=== PATIENT | female | born 1990 | race Caucasian/White ===

== ENCOUNTER 2018-05-10 08:06 | Inpatient (IN) ==
[2018-05-10] MEDS ORDERED: Sod Chloride 0.9% Inj 1,000 ML IV.CONT PRN (09:47)
[2018-05-10] MEDS ORDERED: Oxytocin 30 Units/500ml Premix 30 UNITS/500 ML BAG IV.SIG ONE (09:47)
[2018-05-10] MEDS ORDERED: fentaNYL Citrate Inj 100 MCG/2 ML Ampul IV.PUSH PRN ×2 (09:47)
[2018-05-10] MEDS ORDERED: Sodium Chlor 0.9% Inj 500 ML IV.SIG PRN (09:47)
[2018-05-10] MEDS ORDERED: Naloxone Inj 0.4 MG/ML Vial IV.PUSH PRN ×2 (09:47→17:20)
[2018-05-10] MEDS ORDERED: Oxytocin 30 Units/500ml Premix 30 UNITS/500 ML BAG IV.SIG PRN (09:49)
[2018-05-10 09:57] LABS: Baso % (Auto) 0.2 % (0.0-2.0); Eos % (Auto) 0.4 % (0.0-4.0); Hematocrit 37.7 % (35.0-46.0); Hemoglobin 12.6 gm/dL (11.6-15.3); Lymph # (Auto) 1.2 th/mm3 (1.0-4.8); Mean Corpuscular HGB Conc 33.4 % (32.0-36.0); Mean Corpuscular Volume 86.6 fL (80.0-100.0); Mean Platelet Volume 8.7 fL (7.0-11.0); Mono # (Auto) 0.9 th/mm3 (0.0-0.9); Mono % (Auto) 7.9 % (0.0-8.0); Neut # (Auto) 9.7 th/mm3 (1.8-7.7); Neut % (Auto) 81.5 % (16.0-70.0); Platelet Count 166 th/mm3 (150-450); Red Blood Count 4.35 mil/mm3 (4.00-5.30); Red Cell Distribution Width 15.6 % (11.6-17.2); White Blood Count 11.9 th/mm3 (4.0-11.0)
[2018-05-10] MEDS ORDERED: Citric Acid/Sodium Citrate Liq 30 ML UDC PO SCH (10:00)
[2018-05-10] MEDS ORDERED: fentaNYL 2MCG-Bupiv 0.125% Epi 150 ML EPIDURAL ONE (12:13)
[2018-05-10] MEDS ORDERED: fentaNYL Citrate Inj 100 MCG/2 ML Ampul EPIDURAL ONE (13:32)
[2018-05-10] MEDS ORDERED: fentaNYL 2MCG-Bupiv 0.125% Epi 150 ML EPIDURAL PRN (13:32)
[2018-05-10 13:34] LABS: Bilirubin,Urine Negative (Negative); Calcium Oxalate Crystals,Urine Many /hpf; Clarity,Urine Hazy (Clear); Color,Urine Yellow (Yellw/Straw); Glucose,Urine (UA) Negative (Negative); Leukocyte Esterase,Urine Trace (Negative); Mucus,Urine Few /lpf (Occasional); Nitrite,Urine Negative (Negative); Specific Gravity,Urine 1.016 (1.002-1.035); Squamous Epithelial Cell,Urine 1 /hpf (0-5)
[2018-05-10 13:35] LABS: Amphetamine Urine With Conf Neg (Neg); Benzodiazepine Urine With Conf Neg (Neg); Cocaine Urine With Conf Neg (Neg); Opiates Urine With Conf Neg (Neg)
[2018-05-10 13:43] LABS: Cannabinoid Urine With Conf Neg (Neg)
--- NOTE | 2018-05-10 14:10 | P.OBLABOR ---
Subjective Interval history: labor with AROM progressing well on pit Objective Vital Signs: Vital Signs - 8 hr 05/10/18 08:49 05/10/18 09:45 05/10/18 09:46 Temperature 98.3 F Pulse Rate 108 H 98 H Respiratory Rate 18 Blood Pressure 138/99 H 137/82 05/10/18 12:21 05/10/18 12:35 05/10/18 12:40 Temperature 97.5 F L Pulse Rate 97 H 102 H Respiratory Rate 16 Blood Pressure 136/102 H 143/102 H 05/10/18 12:50 05/10/18 13:00 05/10/18 13:05 Temperature Pulse Rate 111 H 103 H 88 Respiratory Rate Blood Pressure 152/88 H 145/83 H 116/75 05/10/18 13:10 05/10/18 13:15 05/10/18 13:20 Temperature Pulse Rate 80 82 84 Respiratory Rate Blood Pressure 126/79 122/75 120/67 05/10/18 14:03 Temperature 97.6 F Pulse Rate Respiratory Rate Blood Pressure Objective: Pelvic Exam: Cervix: [-] Dilatation: 5 Effacement: [-] Station: [-] Presentation: [-] Membranes: AROM Uterine Contractions: 2-3 min FHT's: Category: 1 Baseline: [-] Reactive: [-] Variability: [-] Decels: [-] Artificial Rupture of Membrane: Yes Artificial ROM Date: 05/10/18 Assessment and Plan - Diagnosis (1) Post-dates Code(s): O48.0 - Post-term Status: Acute
--- NOTE | 2018-05-10 14:16 | P.HPOB ---
History of Present Illness Service: Post dates induction Primary Care Physician: No Primary Care Physician History of Present Illness: 27 yo patient 41 1/7 weeks. post dates induction - Inpatient Certification I certify that the inpatient services were ordered in accordance with Medicare regulations governing the order. This includes certification that hospital inpatient services are reasonable and necessary and in the case of services not specified as inpatient-only under 42 CFR 419.22(n), that they are appropriately provided as inpatient services in accordance to with the 2-midnight benchmark under 43 CFR 412.3(e) Estimated Total Length of Stay (Days): 2 Plans for Post Hospital Care: Home Review of Systems All other systems reviewed negative except as stated in HPI PMFSH - Medical / Surgical Hx Neg / Unobtainable Medical Problems Denied: Yes Surgical History: No Previous Surgery - Social History I have reviewed the patient's Social History: Yes - Tobacco History Second Hand Smoke Exposure: No Tobacco Use In Past 30 Days: No Smoking Status: Never smoker - Travel History Recent Travel in the [place] Within the Last 8 Weeks: No Recent Travel Out of the Country Within the Last 8 Weeks: No - Immunization History Hx Influenza Vaccine This Season: Yes Medications and Allergies Active Medications: Active Medications Citric Acid/Sodium Citrate (Sodium Citrate/Citric Acid Liq) 30 ml PO [facility] Stop: 05/14/18 09:59 Ephedrine Sulfate (Ephedrine/Ns Syringe) 10 mg IV.PUSH UNSCH PRN PRN Reason: SEE LABEL COMMENTS Stop: 05/11/18 13:32 Fentanyl Citrate (Fentanyl Inj) 50 mcg IV.PUSH Q1H PRN PRN Reason: Pain Scale 3 - 5 Fentanyl Citrate (Fentanyl Inj) 100 mcg IV.PUSH Q1H PRN PRN Reason: PAIN SCALE 6 TO 10 Lactated Ringer's (Lr 1000 Ml Inj) 1,000 mls @ 125 mls/hr IV[facility]CONT [facility] Last Admin: 05/10/18 10:18 Dose: 125 mls/hr Lactated Ringer's (Lr 1000 Ml Inj) 1,000 mls @ 3,000 mls/hr IV.SIG UNSCH PRN PRN Reason: compromise or epidural Last Admin: 05/10/18 12:28 Dose: 3,000 mls/hr Sodium Chloride (Ns Inj) 500 mls @ 1,000 mls/hr IV.SIG UNSCH PRN PRN Reason: SEE LABEL COMMENTS Sodium Chloride (Ns Inj) 1,000 mls @ 100 mls/hr IV.CONT .Q10H PRN PRN Reason: SEE LABEL COMMENTS Oxytocin (Pitocin 30 Units/Ns 500 Ml Premix) 30 units in 500 mls @ 2 mls/hr IV.SIG TITRATE PRN; Protocol PRN Reason: For induction of labor Last Admin: 05/10/18 10:15 Dose: 2 milliunit/min, 2 mls/hr Fentanyl/Bupivacaine/Sodium Chlor (Fentanyl 2 Mcg-Bupiv 0.125% Epi) 150 mls @ 13 mls/hr EPIDURAL PRN PRN PRN Reason: for Labor Pain Lidocaine HCl (Xylocaine 1% Inj) 0.1 ml I-DERMAL PRN PRN PRN Reason: For IV start Stop: 05/13/18 09:46 Lidocaine HCl (Xylocaine 1% Inj) 10 ml INFILTRATN PRN PRN PRN Reason: For episiotomy repair Stop: 05/12/18 09:46 Mineral Oil (Muri-Lube Oil) 10 ml TOPICAL PRN PRN PRN Reason: PRN perineal massage Miscellaneous Information (Misc Information) 1 each OTHER UNSCH PRN PRN Reason: SEE LABEL COMMENTS Stop: 05/11/18 13:32 Miscellaneous Information (Misc Information) 1 each OTHER UNSCH PRN PRN Reason: SEE LABEL COMMENTS Stop: 05/11/18 13:32 Naloxone HCl (Narcan Inj) 0.1 mg IV.PUSH Q2M PRN PRN Reason: for opiate reversal Allergies Allergy/AdvReac Type Severity Reaction Status Date / Time No Known Allergies Allergy Verified 05/10/18 08:38 Home Medications Medication Instructions Recorded Confirmed Type vit,[id number] 1 tab PO DAILY 05/10/18 05/10/18 History [PNV 29-1] Exam Vital signs: Vital Signs 05/10/18 08:49 05/10/18 09:45 05/10/18 09:46 Temperature 98.3 F Pulse Rate 108 H 98 H Respiratory Rate 18 Blood Pressure 138/99 H 137/82 05/10/18 12:21 05/10/18 12:35 05/10/18 12:40 Temperature 97.5 F L Pulse Rate 97 H 102 H Respiratory Rate 16 Blood Pressure 136/102 H 143/102 H 05/10/18 12:50 05/10/18 13:00 05/10/18 13:05 Temperature Pulse Rate 111 H 103 H 88 Respiratory Rate Blood Pressure 152/88 H 145/83 H 116/75 05/10/18 13:10 05/10/18 13:15 05/10/18 13:20 Temperature Pulse Rate 80 82 84 Respiratory Rate Blood Pressure 126/79 122/75 120/67 05/10/18 14:03 Temperature 97.6 F Pulse Rate Respiratory Rate Blood Pressure Intake & Output 05/09/18 05/10/18 05/10/18 18:59 06:59 18:59 Weight 104.326 kg Other: Weight On Admission 104.326 kg - Constitutional no acute distress - Routine HEENT Exam Head: Present: normocephalic - Routine Neck Exam Present: full ROM - Routine Respiratory Exam Present: CTA bilaterally - Routine Cardiovascular Exam Present: RRR - Routine Abdominal Exam Present: soft, normoactive bowel sounds - Routine Extremities Exam Present: full ROM - Routine Skin Exam Present: intact - Routine Neurological Exam Present: oriented X3 - Additional findings Additional findings: cervix on admission 3 cm Results - Labs CBC & Chem 7: 05/10/18 08:35 Labs: Laboratory Results - last 24 hr 05/10/18 05/10/18 05/10/18 08:35 08:35 08:35 WBC 11.9 H RBC 4.35 Hgb 12.6 Hct 37.7 MCV 86.6 MCH 29.0 MCHC 33.4 RDW 15.6 Plt Count 166 MPV 8.7 Neut % (Auto) 81.5 H Lymph % (Auto) 10.0 Rains % (Auto) 7.9 Eos % (Auto) 0.4 Baso % (Auto) 0.2 Neut # (Auto) 9.7 H Lymph # (Auto) 1.2 Rains # (Auto) 0.9 Eos # (Auto) 0.0 Baso # (Auto) 0.0 WBC Differential . Differential Comment Auto diff final Urine Color Urine Clarity Urine pH Ur Specific [place] Urine Protein Urine Glucose (UA) Urine Ketones Urine Occult Blood Urine Nitrate Urine Bilirubin Urine Urobilinogen Ur Leukocyte Esterase Urine RBC Urine WBC Ur Squamous Epith Cells Calcium Oxalate Crystal Urine Mucus Micro UA Comment Ur Microscopic Review Urine Culture Comments Urine Opiates Screen Neg Ur Barbiturates Screen Neg Ur Amphetamine Screen Neg U Benzodiazepines Scrn Neg Urine Cocaine Screen Neg U Cannabinoids Screen Neg Blood Type A Positive Blood Type Recheck Required 05/10/18 08:35 WBC RBC Hgb Hct MCV MCH MCHC RDW Plt Count MPV Neut % (Auto) Lymph % (Auto) Rains % (Auto) Eos % (Auto) Baso % (Auto) Neut # (Auto) Lymph # (Auto) Rains # (Auto) Eos # (Auto) Baso # (Auto) WBC Differential Differential Comment Urine Color Yellow Urine Clarity Hazy H Urine pH 6.0 Ur Specific [place] 1.016 Urine Protein 30 H Urine Glucose (UA) Negative Urine Ketones Negative Urine Occult Blood Small H Urine Nitrate Negative Urine Bilirubin Negative Urine Urobilinogen Less than 2 Ur Leukocyte Esterase Trace H Urine RBC 1 Urine WBC 3 Ur Squamous Epith Cells 1 Calcium Oxalate Crystal Many H Urine Mucus Few H Micro UA Comment Culture not ind Ur Microscopic Review Not Reportable Urine Culture Comments Culture not ind Urine Opiates Screen Ur Barbiturates Screen Ur Amphetamine Screen U Benzodiazepines Scrn Urine Cocaine Screen U Cannabinoids Screen Blood Type Blood Type Recheck Caprini VTE Risk Assessment Caprini VTE Risk Assessment: No/Low Risk (score <= 1) Caprini Risk Assessment Model: Point Value = 1 Point Value = 2 Point Value = 3 Point Value = 5 Age 41-60 Minor surgery BMI > 25 kg/m2 Swollen legs Varicose veins or History of unexplained or recurrent spontaneous Oral contraceptives or hormone replacement Sepsis (< 1 month) Serious lung disease, including pneumonia (< 1 month) Abnormal pulmonary function Acute myocardial infarction Congestive heart failure (< 1 month) History of inflammatory bowel disease Medical patient at bed rest Age 61-74 Arthroscopic surgery Major open surgery (> 45 min) Laparoscopic surgery (> 45 min) Malignancy Confined to bed (> 72 hours) Immobilizing plaster cast Central venous access Age >= 75 History of VTE Family history of VTE Factor V Leiden Prothrombin [id number] Lupus anticoagulant Anticardiolipin antibodies Elevated serum homocysteine Heparin-induced thrombocytopenia Other congenital or acquired thrombophilia Stroke (< 1 month) Elective arthroplasty Hip, pelvis, or leg fracture Acute spinal cord injury (< 1 month) Prophylaxis Regimen: Total Risk Factor Score Risk Level Prophylaxis Regimen 0-1 Low Early ambulation 2 Moderate Order ONE of the following: *Sequential Compression Device (SCD) *Heparin 5000 units SQ BID 3-4 Higher Order ONE of the following medications: *Heparin 5000 units SQ TID *Enoxaparin/Lovenox 40 mg SQ daily (WT < 150 kg, CrCl > 30 mL/min) *Enoxaparin/Lovenox 30 mg SQ daily (WT < 150 kg, CrCl > 10-29 mL/min) *Enoxaparin/Lovenox 30 mg SQ BID (WT < 150 kg, CrCl > 30 mL/min) AND/OR *Sequential Compression Device (SCD) 5 or more Highest Order ONE of the following medications: *Heparin 5000 units SQ TID (Preferred with Epidurals) *Enoxaparin/Lovenox 40 mg SQ daily (WT < 150 kg, CrCl > 30 mL/min) *Enoxaparin/Lovenox 30 mg SQ daily (WT < 150 kg, CrCl > 10-29 mL/min) *Enoxaparin/Lovenox 30 mg SQ BID (WT < 150 kg, CrCl > 30 mL/min) AND *Sequential Compression Device (SCD) Assessment and Plan - Diagnosis (1) Post-dates Code(s): O48.0 - Post-term Status: Acute - Plan induction with pitocin
[2018-05-10] MEDS ORDERED: Diphtheria/Tetanus/Pertussis Vaccine Inj 0.5 ML Syringe IM ONE (16:00)
[2018-05-10] MEDS ORDERED: Measles/Mumps/Rubella Vaccine Inj 0.5 ML Vial SQ ONE (16:00)
[2018-05-10] MEDS ORDERED: Benzocaine 20% Top Spray 60 ML Can TOPICAL PRN (17:20)
[2018-05-10] MEDS ORDERED: Acetaminophen 325 MG Tablet PO PRN (17:20)
[2018-05-10] MEDS ORDERED: Oxytocin 30 Units/500ml Premix 30 UNITS/500 ML BAG IV.CONT PRN (17:20)
[2018-05-10] MEDS ORDERED: Zolpidem Tartrate 5 MG Tablet PO PRN (17:20)
[2018-05-10] MEDS ORDERED: Witch Hazel 50%/Glyderin 12.5% 40 Pad Jar RECTAL PRN (17:20)
[2018-05-10] MEDS ORDERED: Bisacodyl 10 MG Supp RECTAL PRN (17:20)
--- NOTE | 2018-05-10 17:20 | P.OBDELI ---
Weeks Gestation: 41 Patient Started Active Labor: Yes Active Labor Start Date: 05/10/18 Active Labor Start Time: 10:00 Artificial Rupture of Membrane: Yes Artificial ROM Date: 05/10/18 Artificial ROM Time: 10:00 Anesthesia: Epidural Episiotomy: none Vaginal Delivery: Normal, Spontaneous Presentation: Occiput anterior Nuchal Cord: None Delayed Cord Clamping (45 sec): Yes Placenta: Spontaneous delivery, Intact, 3 vessel cord Laceration: Vaginal, 3 deg, Involving anal sphincter Repair: Chromic running (for 2nd), Vicryl interrupted (for 3rd degree) Infant: Male, Single
[2018-05-10] MEDS: Senna/Docusate Sodium 8.6/50 MG Tablet PO SCH (19:35)
--- NOTE | 2018-05-11 09:09 | P.PNOB ---
Subjective Post day: 1 Objective Vital Signs/I&O: Vital Signs 05/10/18 09:45 05/10/18 09:46 05/10/18 12:21 Temperature 98.3 F 97.5 F L Pulse Rate 98 H Respiratory Rate 16 Blood Pressure 137/82 05/10/18 12:35 05/10/18 12:40 05/10/18 12:50 Temperature Pulse Rate 97 H 102 H 111 H Respiratory Rate Blood Pressure 136/102 H 143/102 H 152/88 H 05/10/18 13:00 05/10/18 13:05 05/10/18 13:10 Temperature Pulse Rate 103 H 88 80 Respiratory Rate Blood Pressure 145/83 H 116/75 126/79 05/10/18 13:15 05/10/18 13:20 05/10/18 14:03 Temperature 97.6 F Pulse Rate 82 84 Respiratory Rate Blood Pressure 122/75 120/67 05/10/18 14:15 05/10/18 14:30 05/10/18 15:00 Temperature Pulse Rate 80 80 Respiratory Rate 16 Blood Pressure 127/85 130/82 05/10/18 15:30 05/10/18 16:00 05/10/18 16:58 Temperature Pulse Rate 87 110 H Respiratory Rate 18 Blood Pressure 128/79 133/95 H 144/78 H 05/10/18 17:00 05/10/18 17:02 05/10/18 17:15 Temperature 98.0 F Pulse Rate 91 H 89 Respiratory Rate Blood Pressure 139/110 H 117/88 05/10/18 17:31 05/10/18 17:45 05/10/18 18:15 Temperature Pulse Rate 104 H 121 H 115 H Respiratory Rate Blood Pressure 131/74 141/84 H 134/90 05/10/18 18:38 05/10/18 19:00 05/10/18 19:34 Temperature Pulse Rate 134 H 102 H 112 H Respiratory Rate Blood Pressure 141/106 H 129/83 132/77 05/10/18 19:45 05/10/18 21:30 Temperature 98.9 F 98.2 F Pulse Rate 87 Respiratory Rate 18 16 Blood Pressure 135/76 Intake & Output 05/10/18 05/11/18 05/11/18 18:59 06:59 18:59 Weight 104.326 kg Other: Weight On Admission 104.326 kg Result Diagrams: 05/10/18 08:35 Objective Remarks: GENERAL: Well-nourished, well-developed patient. ABDOMEN/GI: Abdomen soft, non-tender. Fundus: Firm, non-tender at umbilicus. GENITOURINARY: Light to moderate bleeding. EXTREMITIES: No cyanosis or edema, non-tender, without signs of DVT. Medications and IVs: Active Medications Acetaminophen (Tylenol) 650 mg PO Q4H PRN PRN Reason: PAIN SCALE 1 TO 2 Al Hydroxide/Mg Hydroxide (Milk Of Magnesia Liq) 30 ml PO Q12H PRN PRN Reason: Mild Constipation Benzocaine (Americaine 20% Top [place]) 1 spray TOPICAL Q4H PRN PRN Reason: For Perineum Discomfort Bisacodyl (Dulcolax Supp) 10 mg RECTAL DAILY PRN PRN Reason: SEVERE CONSITIPATION Ephedrine Sulfate (Ephedrine/Ns Syringe) 10 mg IV.PUSH UNSCH PRN PRN Reason: SEE LABEL COMMENTS Stop: 05/11/18 13:32 Oxytocin (Pitocin 30 Units/Ns 500 Ml Premix) 30 units in 500 mls @ 2 mls/hr IV.SIG TITRATE PRN; Protocol PRN Reason: For induction of labor Last Admin: 05/10/18 10:15 Dose: 2 milliunit/min, 2 mls/hr Fentanyl/Bupivacaine/Sodium Chlor (Fentanyl 2 Mcg-Bupiv 0.125% Epi) 150 mls @ 13 mls/hr EPIDURAL PRN PRN PRN Reason: for Labor Pain Last Infusion: 05/10/18 17:50 Dose: 13 mls/hr Oxytocin (Pitocin 30 Units/Ns 500 Ml Premix) 30 units in 500 mls @ 100 mls/hr IV.CONT UNSCH PRN PRN Reason: Heavy bleeding Ibuprofen (Motrin) 800 mg PO Q8H PRN PRN Reason: For Cramping Last Admin: 05/11/18 04:53 Dose: 800 mg Lactulose (Lactulose Liq) 30 ml PO DAILY PRN PRN Reason: SEVERE CONSITIPATION Miscellaneous Information (Misc Information) 1 each OTHER UNSCH PRN PRN Reason: SEE LABEL COMMENTS Stop: 05/11/18 13:32 Miscellaneous Information (Misc Information) 1 each OTHER UNSCH PRN PRN Reason: SEE LABEL COMMENTS Stop: 05/11/18 13:32 Naloxone HCl (Narcan Inj) 0.1 mg IV.PUSH Q2M PRN PRN Reason: for opiate reversal Ondansetron HCl (Zofran Odt) 4 mg PO Q6H PRN PRN Reason: NAUSEA OR VOMITING Oxycodone/Acetaminophen (Percocet 5/325 Mg) 1 tab PO Q4H PRN PRN Reason: PAIN SCALE 3 TO 5 Oxycodone/Acetaminophen (Percocet 5/325 Mg) 2 tab PO Q4H PRN PRN Reason: PAIN SCALE 6 TO 10 Senna/Docusate Sodium (Inez-Colace) 1 tab PO BID COUNT INCLUDES THE [facility] Last Admin: 05/10/18 19:35 Dose: 1 tab Sennosides (Senokot) 17.2 mg PO Q12H PRN PRN Reason: Moderate Constipation Sodium Chloride (Ns Flush) 2 ml IV.FLUSH BID COUNT INCLUDES THE [facility] Last Admin: 05/11/18 04:22 Dose: Not Given Sodium Chloride (Ns Flush) 2 ml IV.FLUSH PRN PRN PRN Reason: FLUSH AFTER USING IV ACCESS [place]/Glycerin (Tucks Pads) 1 applicatio RECTAL QID PRN PRN Reason: HEMORRHOIDS Zolpidem Tartrate (Ambien) 5 mg PO HS PRN PRN Reason: SLEEP Assessment and Plan - Diagnosis (1) Post-dates Code(s): O48.0 - Post-term Status: Acute - Plan induction with pitocin
[2018-05-11] MEDS: Senna/Docusate Sodium 8.6/50 MG Tablet PO SCH ×4 (09:57→23:30)
[2018-05-12 08:32] VITALS: BP 109/62
[2018-05-12 08:33] VITALS: PULSE 89; RESP 20
[2018-05-12 08:34] VITALS: TEMP 98.1
--- NOTE | 2018-05-12 09:02 | P.PNOB ---
Subjective Post day: 2 Interval history: doing well DC home Objective Vital Signs/I&O: Vital Signs 05/11/18 20:40 05/11/18 23:29 05/12/18 07:00 Temperature 97.9 F 98.1 F Pulse Rate 68 89 Respiratory Rate 18 18 20 Blood Pressure 132/76 109/62 Result Diagrams: 05/10/18 08:35 Objective Remarks: GENERAL: Well-nourished, well-developed patient. ABDOMEN/GI: Abdomen soft, non-tender. Fundus: Firm, non-tender at umbilicus. GENITOURINARY: Light to moderate bleeding. EXTREMITIES: No cyanosis or edema, non-tender, without signs of DVT. Medications and IVs: Active Medications Acetaminophen (Tylenol) 650 mg PO Q4H PRN PRN Reason: PAIN SCALE 1 TO 2 Al Hydroxide/Mg Hydroxide (Milk Of Magnesia Liq) 30 ml PO Q12H PRN PRN Reason: Mild Constipation Benzocaine (Americaine 20% Top [place]) 1 spray TOPICAL Q4H PRN PRN Reason: For Perineum Discomfort Bisacodyl (Dulcolax Supp) 10 mg RECTAL DAILY PRN PRN Reason: SEVERE CONSITIPATION Oxytocin (Pitocin 30 Units/Ns 500 Ml Premix) 30 units in 500 mls @ 2 mls/hr IV.SIG TITRATE PRN; Protocol PRN Reason: For induction of labor Last Admin: 05/10/18 10:15 Dose: 2 milliunit/min, 2 mls/hr Fentanyl/Bupivacaine/Sodium Chlor (Fentanyl 2 Mcg-Bupiv 0.125% Epi) 150 mls @ 13 mls/hr EPIDURAL PRN PRN PRN Reason: for Labor Pain Last Infusion: 05/10/18 17:50 Dose: 13 mls/hr Oxytocin (Pitocin 30 Units/Ns 500 Ml Premix) 30 units in 500 mls @ 100 mls/hr IV.CONT UNSCH PRN PRN Reason: Heavy bleeding Ibuprofen (Motrin) 800 mg PO Q8H PRN PRN Reason: For Cramping Last Admin: 05/12/18 06:04 Dose: 800 mg Lactulose (Lactulose Liq) 30 ml PO DAILY PRN PRN Reason: SEVERE CONSITIPATION Naloxone HCl (Narcan Inj) 0.1 mg IV.PUSH Q2M PRN PRN Reason: for opiate reversal Ondansetron HCl (Zofran Odt) 4 mg PO Q6H PRN PRN Reason: NAUSEA OR VOMITING Oxycodone/Acetaminophen (Percocet 5/325 Mg) 1 tab PO Q4H PRN PRN Reason: PAIN SCALE 3 TO 5 Oxycodone/Acetaminophen (Percocet 5/325 Mg) 2 tab PO Q4H PRN PRN Reason: PAIN SCALE 6 TO 10 Senna/Docusate Sodium (Inez-Colace) 1 tab PO BID [facility] Last Admin: 05/11/18 23:30 Dose: Not Given Sennosides (Senokot) 17.2 mg PO Q12H PRN PRN Reason: Moderate Constipation Sodium Chloride (Ns Flush) 2 ml IV.FLUSH BID [facility] Last Admin: 05/11/18 22:06 Dose: Not Given Sodium Chloride (Ns Flush) 2 ml IV.FLUSH PRN PRN PRN Reason: FLUSH AFTER USING IV ACCESS [place]/Glycerin (Tucks Pads) 1 applicatio RECTAL QID PRN PRN Reason: HEMORRHOIDS Zolpidem Tartrate (Ambien) 5 mg PO HS PRN PRN Reason: SLEEP Assessment and Plan - Diagnosis (1) Post-dates Code(s): O48.0 - Post-term Status: Acute - Plan induction with pitocin
--- NOTE | 2018-05-12 09:05 | P.DS ---
Date of admission: 05/10/18 08:06 Primary care physician: Smiley Primary Care Physician Brief History from admission: 27 yo patient 41 1/7 weeks. post dates induction DS: Diagnosis - Discharge Diagnosis (1) Post-dates Status: Acute DS: Medications - Discharge Medications Prescriptions: oxycodone-acetaminophen 2 tab PO Q4H PRN 3 Days #24 tab PRN Reason: Pain Scale 6 To 10 DS: Summary Hospital Course: doing well dc home - Time Spent with Patient Total time spent providing and/or coordinating discharge services: Less than 30 minutes Exam Vital signs: Vital Signs 05/11/18 20:40 05/11/18 23:29 05/12/18 07:00 Temperature 97.9 F 98.1 F Pulse Rate 68 89 Respiratory Rate 18 18 20 Blood Pressure 132/76 109/62 - Constitutional no acute distress - Routine Respiratory Exam Present: CTA bilaterally - Routine Abdominal Exam Present: soft, normoactive bowel sounds Results Procedures completed during hospitalization: Discharge Plan - Discharge Disposition Patient Disposition: Discharge Home - Discharge Condition Condition: Good - Discharge Order Discharge Orders: Discharge Order (Routine); Ordered 05/12/18 Ordered By: Rui Stevenson - Physicians Team Primary Care Provider: Primary Care Smiley Mullen Attending Provider: Rui Stevenson - Rxs /Orders / Referrals /Forms Prescriptions: New oxycodone-acetaminophen 5-325 mg Tablet 2 tab PO Q4H PRN (Reason: Pain Scale 6 To 10) 3 Days Qty: 24 RF: 0 Continue vit,[id number] [PNV 29-1] 29 mg iron- 1 mg Tablet 1 tab PO DAILY Referrals: Rui Stevenson MD [Physician] - See Instructions (2 weeks) Primary Care Smiley Mullen [Primary Care Provider] - See Instructions - Post Discharge Care Plan Care Plan Goals: Discharge Plan of Care After Vaginal Delivery Congratulations on your new baby! We want your recovery to be velazquez and trouble free. After having a baby, your body may be very tired. It can take time to recover from a vaginal delivery. You may stay in the hospital or center from 1 to 4 days. In some cases, you may be able to go home the same day. Changing Expectations for Parents: Most new mothers experience some form of the baby blues. These mood swings are caused by hormonal shifts in your body. Stress due to the recent changes in your life and lack of sleep also have an effect. The baby blues may last a few days or up to 2 weeks. Balancing the Blues: Recognize your need to talk, to feel protected, to have private time. Allow yourself to cry, to sit, to think. Ask for help when you need it, and accept help when its offered. Knowing your needs is not a weakness. Share your thoughts with your partner. Or pick pulling machine operator the phone and call a friend, your mother , a sister, or an aunt. Rest, eat right, and get some light exercise. The mind feels best when the body feels good. Diet and Activity: * Eat fresh fruit and vegetables, whole grains, and bran cereals. * Drink plenty of water. * Dont strain to have a bowel movement. * Follow activity as directed. * After you deliver your baby, you can start to exercise when you feel ready. Let your body be your guide. If you are : * Ask before you take any medicine. * If you leak milk, it will help to nurse right before the activity. * Talk to your healthcare provider about alcohol, if you choose to drink. * When youre sick, check with your physician if the medications would impact the breast feeding * Ask your physician before taking any prescription or [id number] medicines, herbs, or supplements. * Ask your physician what to use for prevention while you are nursing. If you have Stitches: * Gently wipe from front to back after you urinate or have a bowel movement.. * After wiping, spray warm water on the area. Or you can have a sitz bath. This means sitting in a tub with a few inches of water in it. * Pat the area dry or use a hairdryer on a cool setting. * Do not use soap or any solution except water on the area. * You can take a shower unless told not to. * Change sanitary pads at least every 2 to 4 hours.. * Place cold or heat packs on the area as directed by your physician or nurses. Keep a thin towel between the pack and your skin. When to call your doctor: Call your doctor right away if you have: Fever of 100.5F (38C) or higher, or as directed by your doctor. Heavy or gushing bleeding from the vagina. Discharge that has a bad odor. No bowel movement within one week after the of your baby. Pain or urgency with urination, or inability to urinate. Severe pain in the belly or increased pain near your stitches. Signs of Depression include: You dont want to be with the baby. Your symptoms are not getting better, and youre getting more upset. You have no interest in eating or are not able to sleep. You think you may harm yourself or the baby. The Depression After Delivery hotline (112-375-7804) may also be helpful. If your symptoms worsen call your OB Physician, or go to an Urgent Care Center or Emergency Room Smoking is Dangerous to your health. Avoid second hand smoke Call the 24-hour crisis hotline for domestic abuse at Follow-Up: Do Not miss your follow-up appointment. Increasing symptoms of depression. Keep up with all your appointments and yearly check ups. Call 911: Call 911 right away if you have: Chest pain. Shortness of breath. Any pain or tenderness in your calf. Severe depression or Thoughts of harm to self and others.
[2018-05-12] MEDS: Senna/Docusate Sodium 8.6/50 MG Tablet PO SCH (09:41)
[2018-05-12] MEDS ORDERED: Influenza (Quadrivalent) Vaccine 0.5 ML Syringe IM ONE (11:00)
== END 2018-05-12 14:08 | disposition home or self-care (01) ==
LOC: H2E 08:06 → H1EA 19:57
PROVIDERS: ADMIT Obstetrics & Gynecology; ATTEND Obstetrics & Gynecology